=== PATIENT | male | born 1990 | race American Indian/Alaskan Native ===

== ENCOUNTER 2019-07-26 18:47 | Emergency (ER) | payer MEDICAID, BC ==
--- NOTE | 2019-07-26 19:06 | Event Note ---
ED Screening Note ED Screening Note: states having abscess to the right upper buttock that began a week ago never had before no PMHx no allergies to meds This initial assessment/diagnostic orders/clinical plan/treatment(s) is/are subject to change based on patients health status, clinical progression and re- assessment by fellow clinical providers in the ED. Further treatment and workup at subsequent clinical providers discretion. Patient/guardian urged not to elope from the ED as their condition may be serious if not clinically assessed and managed. Initial orders include: ACC eval
[2019-07-26] MEDS ORDERED: LIDOCAINE (2%) 20 MG/1 ML VIAL 20 ML MDV INFILTRATI ONE (20:54)
[2019-07-26] MEDS ORDERED: CLINDAMYCIN 300 MG CAP PO ONE (20:54)
[2019-07-26] MEDS ORDERED: HYDROcodone/ACETAMINOPHEN 5-325 MG TAB PO ONE (20:54)
--- NOTE | 2019-07-26 20:56 | Emergency Department Report ---
- General Chief complaint: Skin/Abscess/Foreign Body Stated complaint: SWELLING RT BUTTOCK Time Seen by Provider: 07/26/19 19:04 Source: patient Mode of arrival: Ambulatory Limitations: No Limitations - History of Present Illness Initial comments: Mr. Coe is a 29-year-old -[place] male who presents with abscess to right hip 1 week patient denies history no diabetes,no immunocompromise. There is no fever or chills no nausea or vomiting. Pt is tolerating po intake. MD complaint: abscess/boil (right hip ) Onset/Timin -: week(s) Tetanus Up to Date: yes Location: [facility] Severity: moderate Severity scale (0 -10): 4 Quality: burning, constant, other (itching) Consistency: constant Improves with: none Worsens with: none Associated symptoms: itching Treatments Prior to Arrival: none - Related Data Previous Rx's Medication Instructions Recorded Last Taken Type Clindamycin [Clindamycin CAP] 300 mg PO Q6H 10 Days #40 capsule 07/26/19 Unknown Rx traMADoL [Ultram] 50 mg PO Q6HR PRN #12 tablet 07/26/19 Unknown Rx Allergies Allergy/AdvReac Type Severity Reaction Status Date / Time No Known Allergies Allergy Unverified 07/26/19 19:13 Abscess Boil HPI - HPI Chief Complaint: Skin/Abscess/Foreign Body Stated Complaint: SWELLING RT BUTTOCK Time Seen by Provider: 07/26/19 19:04 Home Medications: Previous Rx's Medication Instructions Recorded Last Taken Type Clindamycin [Clindamycin CAP] 300 mg PO Q6H 10 Days #40 capsule 07/26/19 Unknown Rx traMADoL [Ultram] 50 mg PO Q6HR PRN #12 tablet 07/26/19 Unknown Rx Allergies/Adverse Reactions: Allergies Allergy/AdvReac Type Severity Reaction Status Date / Time No Known Allergies Allergy Unverified 07/26/19 19:13 ED Review of Systems ROS: Stated complaint: SWELLING RT BUTTOCK Other details as noted in HPI Constitutional: denies: chills, fever Eyes: denies: eye pain, eye discharge, vision change ENT: denies: ear pain, throat pain Respiratory: denies: cough, shortness of breath, wheezing Cardiovascular: denies: chest pain, palpitations Endocrine: no symptoms reported Gastrointestinal: denies: abdominal pain, nausea, diarrhea Genitourinary: denies: urgency, dysuria Musculoskeletal: denies: back pain, joint swelling, arthralgia Skin: other (abscess right hip ). denies: rash, lesions Neurological: denies: headache, weakness, paresthesias Psychiatric: denies: anxiety, depression Hematological/Lymphatic: denies: easy bleeding, easy bruising ED Past Medical Hx - Past Medical History Previous Medical History?: No - Surgical History Past Surgical History?: No - Social History Smoking Status: Never Smoker Substance Use Type: None - Medications Home Medications: Home Medications Medication Instructions Recorded Confirmed Last Taken Type Clindamycin [Clindamycin CAP] 300 mg PO Q6H 10 Days #40 capsule 07/26/19 Unkno wn Rx traMADoL [Ultram] 50 mg PO Q6HR PRN #12 tablet 07/26/19 Unknown Rx ED Physical Exam - General Limitations: No Limitations General appearance: alert, in no apparent distress - Head Head exam: Present: atraumatic, normocephalic - Eye Eye exam: Present: normal appearance, PERRL, EOMI - ENT ENT exam: Present: mucous membranes moist - Neck Neck exam: Present: normal inspection, full ROM. Absent: tenderness - Respiratory Respiratory exam: Present: normal lung sounds bilaterally. Absent: respiratory distress - Cardiovascular Cardiovascular Exam: Present: regular rate, normal rhythm, normal heart sounds. Absent: systolic murmur, diastolic murmur, rubs, gallop - GI/Abdominal GI/Abdominal exam: Present: soft, normal bowel sounds - Rectal Rectal exam: Present: deferred - Extremities Exam Extremities exam: Present: normal inspection - Back Exam Back exam: Present: normal inspection, full ROM. Absent: tenderness, rash noted - Neurological Exam Neurological exam: Present: alert, oriented X3, CN II-XII intact, normal gait - Psychiatric Psychiatric exam: Present: normal affect, normal mood - Skin Skin exam: Present: warm, dry, normal color, erythema (right hip abscbess 2x3 cm fluctuant mild surrouning erythema, no fever ). Absent: ecchymosis ED Course Vital Signs 07/26/19 19:00 Temperature 98.7 F Pulse Rate 89 Respiratory 18 Rate Blood Pressure 126/72 O2 Sat by Pulse 100 Oximetry - I & D Right Posterior Lateral Hip Type of Procedure: Simple Site: 3x4 Blade Size: 11 I & D Procedure: betadine prep, sterile dressing applied Progress: Abscess 3x4 Centimeters to right posterior lateral hip, site cleaned with Betadine solution, Anesthesia 2% lidocaine plain 2 mL, incision with 11 blade scalpel 1 cm , moderate purulent bloodly drainage, wound irrigated with sterile saline x 100cc, wound packed with 1" idoform guaze, sterile dressing applied, pt given wound care in structions, all bleeding is controlled, pt tolerated procedure with minimal distress. ED Medical Decision Making - Medical Decision Making abscess right hip, see I& D procedure note, pt given wound care instructions, will follow up with pcp in 2-3 days for wound check, pt will be dc'd to self with rx for clindamycin and ultram, pt verbalized agreement and understanding of discharge plan. pt is currently a/o x 3 ambulatory with steady gait. Critical care attestation.: If time is entered above; I have spent that time in minutes in the direct care of this critically ill patient, excluding procedure time. ED Disposition Clinical Impression: Abscess of buttock, right Disposition: DC-01 TO HOME OR SELFCARE Is pt being admited?: No Does the pt Need Aspirin: No Condition: Stable Instructions: Abscess (ED), Abscess Incision and Drainage (ED) Additional Instructions: follow up with primary care doctor in 2 days for wound check , [place] gauze dressing daily, as directed. Prescriptions: Clindamycin [Clindamycin CAP] 300 mg PO Q6H 10 Days #40 capsule traMADoL [Ultram] 50 mg PO Q6HR PRN #12 tablet PRN Reason: Pain Referrals: [facility] [Outside] - 3-5 Days Forms: Work/School Release Form(ED) Time of Disposition: 21:37
[2019-07-26 21:58] VITALS: BP 137/81
== END 2019-07-26 22:00 | disposition home or self-care (01) ==
LOC: ED 18:47
DX: L02.31 Cutaneous abscess of buttock (principal)
CPT/HCPCS: 99282